=== PATIENT | female | born 1950 | race Caucasian/White ===

== ENCOUNTER → 2017-11-10 | Outpatient (CLI) | payer MEDICARE, BC ==
[~2017-11-10] MED LIST: ADVIL200 MG PO; ALAVERT10 M1 PO; ALAWAY 10 ML10 ML; ALEVE 220MG220 MG PO; ASPIRIN 81M81 MG/TA2 PO; BUSPIRONE10 MG PO; CALCIUM 600 + V1 TA1 PO; CLARITIN REDITA10 MG PO; COMPLETE SENIOR1 TA1 PO; DIOVAN HCT 25 M1 TA1 PO; FAMOTIDINE40 MG PO; FIBERCON500 MG PO; FLEXERIL 1010 MG/TAB PO; FLONASEALLERGY NS; MICARDIS80 MG PO; MUCINEX1200 MG PO; MUCINEX600 M1 PO; NASONEX0.05 MG/AC NS; NORVASC2.5 MG PO; OMEGA-3 FISH1000 MG PO; PATADAY 2.5 ML2.5 ML OP; PEPCID40 MG PO; PREMPRO 0.3 MG-1 TAB PO; STRESS FORMULA1 TA1 PO; VENLAFAXINE225 MG PO; [UNRECOGNIZED DRUG - OTHER]; [UNRECOGNIZED DRUG - OTHER] PO
== END ==
LOC: MC.RAD 13:00
DX: Z12.31 Encounter for screening mammogram for malignant neoplasm of breast (principal)

== ENCOUNTER → 2018-03-10 | Outpatient (CLI) | payer MEDICARE, BC ==
[~2018-03-10] VITALS: Ht 167.6 cm; Wt 96.2 kg
[~2018-03-10] MED LIST changes: -CALCIUM 600 + V1 TA1 PO; +CALCIUM 600/VIT1 CAP PO; +HYZAAR 25 MG-101 TAB PO; +LIPITOR20 MG PO; +MAGIC MOUTH PO; +ZANTAC 150MG T150 MG PO; +ZYRTEC 10MG10 MG PO; +[UNRECOGNIZED DRUG - OTHER] OU
[2018-03-10 09:31] VITALS: BP 140/50; PULSE 100
== END ==
LOC: LIGHT 08:29
DX: J30.9 Allergic rhinitis, unspecified (principal); F33.9 Major depressive disorder, recurrent, unspecified; E11.9 Type 2 diabetes mellitus without complications; Z68.34 Body mass index [BMI] 34.0-34.9, adult; Z71.3 Dietary counseling and surveillance
CPT/HCPCS: G0463

== ENCOUNTER → 2018-03-16 | Outpatient (CLI) | payer MEDICARE, BC | LOC: LIGHT 13:48 | DX: Z01.89 Encounter for other specified special examinations (principal) ==

== ENCOUNTER → 2018-04-06 | Outpatient (CLI) | payer MEDICARE, BC ==
[~2018-04-06] VITALS: Ht 167.6 cm; Wt 95.9 kg
[2018-04-06 11:45] VITALS: BP 140/64; PULSE 100
== END ==
LOC: LIGHT 11:34
DX: J30.9 Allergic rhinitis, unspecified (principal); F33.9 Major depressive disorder, recurrent, unspecified; E11.9 Type 2 diabetes mellitus without complications; Z68.34 Body mass index [BMI] 34.0-34.9, adult
CPT/HCPCS: G0463

== ENCOUNTER → 2018-04-07 | Outpatient (CLI) | payer MEDICARE, BC | LOC: LIGHT 15:08 | DX: Z01.818 Encounter for other preprocedural examination (principal) ==

== ENCOUNTER → 2018-05-04 | Outpatient (CLI) | payer MEDICARE, BC ==
[~2018-05-04] VITALS: Ht 167.6 cm; Wt 94.8 kg
[2018-05-04 13:56] VITALS: BP 134/64; PULSE 100
== END ==
LOC: LIGHT 13:51
DX: J30.9 Allergic rhinitis, unspecified (principal); F33.9 Major depressive disorder, recurrent, unspecified; E11.9 Type 2 diabetes mellitus without complications; Z68.33 Body mass index [BMI] 33.0-33.9, adult; Z71.3 Dietary counseling and surveillance
CPT/HCPCS: G0463

== ENCOUNTER → 2018-06-08 | Outpatient (CLI) | payer MEDICARE, BC ==
[~2018-06-08] VITALS: Ht 167.6 cm; Wt 95.0 kg
[2018-06-08 14:27] VITALS: BP 122/52; PULSE 60
== END ==
LOC: LIGHT 11:10
DX: E11.9 Type 2 diabetes mellitus without complications (principal); J30.9 Allergic rhinitis, unspecified; F32.9 Major depressive disorder, single episode, unspecified; E66.9 Obesity, unspecified; Z68.33 Body mass index [BMI] 33.0-33.9, adult; Z71.3 Dietary counseling and surveillance
CPT/HCPCS: G0463

== ENCOUNTER → 2018-08-03 | Outpatient (CLI) | payer MEDICARE, BC ==
[~2018-08-03] VITALS: Ht 167.6 cm; Wt 93.7 kg
[2018-08-03 13:51] VITALS: BP 146/58; PULSE 60
== END ==
LOC: LIGHT 10:32
DX: J30.9 Allergic rhinitis, unspecified (principal); F32.9 Major depressive disorder, single episode, unspecified; R73.01 Impaired fasting glucose; E11.9 Type 2 diabetes mellitus without complications; E66.9 Obesity, unspecified; Z68.33 Body mass index [BMI] 33.0-33.9, adult; Z71.3 Dietary counseling and surveillance
CPT/HCPCS: G0463

== ENCOUNTER → 2018-09-07 | Outpatient (CLI) | payer MEDICARE, BC ==
[~2018-09-07] VITALS: Ht 167.6 cm; Wt 93.2 kg
[2018-09-07 15:19] VITALS: BP 142/50; PULSE 84
== END ==
LOC: LIGHT 09:17
DX: J30.9 Allergic rhinitis, unspecified (principal); F32.9 Major depressive disorder, single episode, unspecified; R73.01 Impaired fasting glucose; E11.9 Type 2 diabetes mellitus without complications; Z68.33 Body mass index [BMI] 33.0-33.9, adult; Z71.3 Dietary counseling and surveillance
CPT/HCPCS: G0463

== ENCOUNTER → 2018-11-02 | Outpatient (CLI) | payer MEDICARE, BC ==
[~2018-11-02] VITALS: Ht 167.6 cm; Wt 92.8 kg
[2018-11-02 14:34] VITALS: BP 160/60; PULSE 100
== END ==
LOC: LIGHT 10-05 15:50
DX: J30.9 Allergic rhinitis, unspecified (principal); F32.9 Major depressive disorder, single episode, unspecified; R73.01 Impaired fasting glucose; E66.9 Obesity, unspecified; Z68.33 Body mass index [BMI] 33.0-33.9, adult; Z71.3 Dietary counseling and surveillance
CPT/HCPCS: G0463

== ENCOUNTER → 2019-01-25 | Outpatient (CLI) | payer MEDICARE, BC ==
[~2019-01-25] VITALS: Ht 167.6 cm; Wt 92.1 kg
[~2019-01-25] MED LIST changes: +PRESERVISION1 SGL PO
[2019-01-25 13:46] VITALS: BP 134/50; PULSE 88
== END ==
LOC: LIGHT 12-28 14:56
DX: J44.9 Chronic obstructive pulmonary disease, unspecified (principal); F32.9 Major depressive disorder, single episode, unspecified; R73.01 Impaired fasting glucose; E11.9 Type 2 diabetes mellitus without complications
CPT/HCPCS: G0463

== ENCOUNTER → 2019-03-01 | Outpatient (CLI) | payer MEDICARE, BC ==
[~2019-03-01] VITALS: Ht 167.6 cm; Wt 92.3 kg
[2019-03-01 13:30] VITALS: BP 120/60; PULSE 88
== END ==
LOC: LIGHT 11:40
DX: J30.9 Allergic rhinitis, unspecified (principal); F32.9 Major depressive disorder, single episode, unspecified; R73.01 Impaired fasting glucose; E11.9 Type 2 diabetes mellitus without complications; Z68.32 Body mass index [BMI] 32.0-32.9, adult; Z71.3 Dietary counseling and surveillance
CPT/HCPCS: G0463

== ENCOUNTER → 2019-04-06 | Outpatient (CLI) | payer MEDICARE, BC | LOC: MC.RAD 11:00 | DX: Z12.31 Encounter for screening mammogram for malignant neoplasm of breast (principal) ==

== ENCOUNTER → 2019-07-05 | Outpatient (CLI) | payer MEDICARE, BC ==
[~2019-07-05] VITALS: Ht 167.6 cm; Wt 91.4 kg
[~2019-07-05] MED LIST changes: +LEXAPRO 10MG10 MG PO
[2019-07-05 13:15] VITALS: BP 136/50; PULSE 88
== END ==
LOC: LIGHT 03-29 11:52
DX: J30.9 Allergic rhinitis, unspecified (principal); F32.9 Major depressive disorder, single episode, unspecified; E11.9 Type 2 diabetes mellitus without complications; R73.01 Impaired fasting glucose; Z68.32 Body mass index [BMI] 32.0-32.9, adult; Z71.3 Dietary counseling and surveillance
CPT/HCPCS: G0463

== ENCOUNTER → 2019-08-02 | Outpatient (CLI) | payer MEDICARE, BC ==
[~2019-08-02] VITALS: Ht 167.6 cm; Wt 91.6 kg
[2019-08-02 13:35] VITALS: BP 110/50; PULSE 88
== END ==
LOC: LIGHT 13:26
DX: J30.9 Allergic rhinitis, unspecified (principal); F32.9 Major depressive disorder, single episode, unspecified; R73.01 Impaired fasting glucose; E11.9 Type 2 diabetes mellitus without complications; Z68.32 Body mass index [BMI] 32.0-32.9, adult; Z71.3 Dietary counseling and surveillance
CPT/HCPCS: G0463